=== PATIENT | male | born 1950 | race Caucasian/White ===

== ENCOUNTER 2020-10-08 07:07 | Day surgery (SDC) | payer MEDICARE, BC ==
[~2020-10-08] VITALS: Ht 180.3 cm; Wt 73.4 kg
[2020-10-08 07:49] VITALS: BP 98/64
[2020-10-08] MEDS ORDERED: SIMV-42 PO (07:49)
[2020-10-08] MEDS ORDERED: FINA5TAB11 PO (07:49)
[2020-10-08] MEDS ORDERED: LISI1TAB51 PO (07:49)
[2020-10-08] MEDS ORDERED: DEXL60CA3 PO (07:49)
[2020-10-08] MEDS ORDERED: albumin 25% 100mL bottle x 1 IV PRN (08:10)
[2020-10-08 08:55] VITALS: BP 115/70
== END 2020-10-08 08:55 | disposition home or self-care (01) ==
LOC: SSTAY O 07:07
PROVIDERS: ATTEND Radiology Vascular & Interventional Radiology
DX: R18.8 Other ascites (principal); J90 Pleural effusion, not elsewhere classified; R14.0 Abdominal distension (gaseous); D64.9 Anemia, unspecified; N40.0 Benign prostatic hyperplasia without lower urinary tract symptoms; G47.33 Obstructive sleep apnea (adult) (pediatric); I10 Essential (primary) hypertension; E78.5 Hyperlipidemia, unspecified; Z90.49 Acquired absence of other specified parts of digestive tract; Z79.899 Other long term (current) drug therapy; Z87.19 Personal history of other diseases of the digestive system
CPT/HCPCS: 76604; 76705